=== PATIENT | male | born 1945 | race Caucasian/White ===

== ENCOUNTER → 2018-04-24 12:03 | Outpatient (CLI) | payer MEDICARE, SELFPAY ==
[2018-04-24 12:38] LABS: Cholesterol 176 mg/dL (200); High Density Lipoprotein 48 mg/dL; PSA,Total- Diagnostic 4.73 ng/mL (0.0-4.0); Triglycerides 132 mg/dL; Very Low Density Lipoprotein 26 mg/dL (5-40)
[2018-04-25 03:06] LABS: Hepatitis C Ab <0.1 s/co ratio (0.0-0.9)
== END ==
PROVIDERS: Family Provider Internal Medicine; PCP Internal Medicine; Visit Provider Internal Medicine
DX: Z00.00 Encounter for general adult medical examination without abnormal findings (principal); E78.6 Lipoprotein deficiency; R97.20 Elevated prostate specific antigen [PSA]
CPT/HCPCS: 80061; 84153; 86803; 86804

== ENCOUNTER 2020-01-30 10:03 | Day surgery (SDC) | payer MEDICARE, SELFPAY ==
[2020-01-30] VITALS (7 sets, daily range): BP systolic 157–167; BP diastolic 74–89; PULSE 57–76; RESP 16; TEMP -10–36.5; O2SAT 97–100; BMI 27.4
[2020-01-30] MEDS: Tetracaine 0.5% Ophthalmic Bottle 1 DRP OP (11:14)
[2020-01-30] MEDS: Povidone Iodine 30 ML Opthalmic Sol 1 DRP (11:17)
--- NOTE | 2020-01-30 12:14 | DCINST_ITS ---
Allergies/Adverse Reactions: Allergies No Known Allergies Allergy (Verified 01/23/20 10:05) Medications to take at Discharge NK 01/23/20 Cataract Instructions: -Take a pain reliever such as Tylenol, Aspirin or Ibuprofen if needed for eye aching or pain. If this is not enough relief for you pain, call your doctor (or the doctor library circulation department chief), even at night. -You are scheduled for a follow-up appointment at [facility] the day after surgery. You should have someone drive you. -Transient pain and irritation are due to the incision that was made at the time of surgery and do not indicate any trouble. Our office numbers are . If there is no answer, or if it is after our normal business hours, call your surgeon. My home phone number is: Dr. Ashley Escalera INSTRUCTIONS FOLLOWING TOPICAL ANESTHETIC CATARACT SURGERY Protect operated eye with glasses or metal shield at all times. Instill one drop of Polytrim (or other antibiotic drop), one drop of Prednisolone and one drop of Acular in the operated eye four times a day (breakfast, lunch, dinner, and bedtime) until the doctor tells you to quit or decrease them. Wait 3-5 minutes between each drop. Please begin these immediately upon arriving at home. if your surgery is in t he afternoon, try to use the drops at least three more times the day of surgery and again the following morning before your appointment. INSTRUCTIONS FOLLOWING RETROBULBAR CATARACT SURGERY Keep the eye patch and metal shield on until you see your surgeon the day after surgery - these will be removed in the office that day. Do not drive while the patch is on your eye. You will be instructed about the use of drops for the operated eye at that visit. Primary Care Physician: Danuta Vaz MD [Primary Care Provider] -
--- NOTE | 2020-01-30 12:15 | PCM.OPRPT ---
Report of Operation Date of Procedure: 01/30/20 Pre-Operative Diagnosis: Cataract OS Post-Operative Diagnosis: same Surgery/Procedure Performed:: PEM IOL OS Description of Surgical Findings:: cataract Type of Anesthesia:: MAC and Topical Anesth Estimated Blood Loss (mL): none Description of Procedure: Indications for procedure: 74 yo male with history or worsening vision in left eye secondary to cataract. After discussion of the risks, benefits, alternatives, or surgery patient agreed to proceed with cataract surgery. Description of procedure: The patient was brought to the operating room where a time out was performed prior to the start of the procedure. Anesthesia team induced light sedation. The eye was prepped and draped in the usual sterile fashion for eye surgery. A melonie blade was used to make a paracentesis incision at the limbus. Preservative free lidocaine followed by viscoat was instilled into the anterior chamber. A keratome was used make the incision at the temporal limbus. A cystotome was used to begin the capsulorhexis and completed in the continous curvlinear fashion using forceps. BSS on a lopez cannula was used to hydrate beneath the lens capsule until it was noted to be freely mobile in the capsular bag. Phacoemulsification was used to remove the lens in a divide and conquer technique. The cortical material was removed using irrigation and aspiration. The capsular bag was intact. Provisc was used to inflate the capsular bag and a 17.0 tecnis PCBOO was placed into the capsular bag and adjusted using the nakul hook. The remaining viscoelastic material was removed. The wounds were hydrated and noted to be watertight at the conclusion of the case. The patient was taken to the recovery room in stable condition with instructions to follow up in the clinic the following day. - Complications none - Admit VTE Documentation VTE Present on Admission: No - patient can ambulate
== END 2020-01-30 12:46 | disposition home or self-care (01) ==
LOC: SDC 10:12 → AC 10:13
PROVIDERS: PCP Internal Medicine; Referring Provider Ophthalmology; Visit Provider Ophthalmology
PROC: (CPT 66984; principal; 2020-01-30 11:20)
DX: H25.812 Combined forms of age-related cataract, left eye (principal); H01.002 Unspecified blepharitis right lower eyelid; H01.005 Unspecified blepharitis left lower eyelid; H43.811 Vitreous degeneration, right eye
CPT/HCPCS: 00142; 66984

== ENCOUNTER → 2020-03-24 12:41 | Outpatient (CLI) | payer MEDICARE, SELFPAY ==
[2020-01-30 10:27] VITALS: BMI 27.4
== END ==
PROVIDERS: PCP Internal Medicine; Referring Provider Ophthalmology; Visit Provider Ophthalmology
DX: Z01.818 Encounter for other preprocedural examination (principal)

== ENCOUNTER → 2021-05-04 | Outpatient (CLI) | payer MEDICARE, SELFPAY ==
[2020-01-30 10:27] VITALS: BMI 27.4
[2021-05-04 10:05] LABS: Cholesterol 205 mg/dL (200); High Density Lipoprotein 48 mg/dL; Triglycerides 179 mg/dL; Very Low Density Lipoprotein 36 mg/dL (5-40)
== END | disposition home or self-care (01) ==
LOC: LABSPEC 09:31
PROVIDERS: PCP Internal Medicine; Referring Provider Internal Medicine; Visit Provider Internal Medicine
DX: Z00.00 Encounter for general adult medical examination without abnormal findings (principal)
CPT/HCPCS: 80061

== ENCOUNTER → 2024-08-06 | Outpatient (CLI) | payer MEDICARE, SELFPAY ==
--- NOTE | 2024-08-06 13:27 | US_ITS ---
INDICATION: Scrotal pain EXAMINATION: Ultrasound US Scrotum (Contents) TECHNIQUE: Realtime ultrasound of the testicles was performed with grayscale, Color Doppler and spectral Doppler analysis. COMPARISON: No relevant prior comparison study available FINDINGS: RIGHT: TESTIS: 5.7 x 3.3 x 3.6 cm. Heterogeneous with probable intravenous mass measuring about 3.4 x 3.2 x 3 cm. COLOR DOPPLER: Decreased arterial and venous flow to the right testicle. EPIDIDYMIS: Not visualized. [ HYDROCELE: Large right hydrocele. VARICOCELE: None. LEFT: TESTIS: Stent left testicle.. Previous left orchiectomy. EPIDIDYMIS: Not visualized. US/Testicular with Arterial Flow IMPRESSION: 1. Heterogeneous right testicle with probable heterogeneous solid mass. Urology consultation is recommended. 2. Large right hydrocele. 3. Status post left orchiectomy. Electronically Signed: Ignacio Katz MD at 15:29 EDT ,
== END | disposition home or self-care (01) ==
LOC: US 13:22
PROVIDERS: PCP Internal Medicine; Referring Provider Urology; Visit Provider Urology
DX: N50.82 Scrotal pain (principal)
CPT/HCPCS: 76870; 93976

== ENCOUNTER 2024-08-09 13:56 | Day surgery (SDC) | payer MEDICARE, SELFPAY ==
[2024-08-09] VITALS (8 sets, daily range): BP systolic 142–167; BP diastolic 61–91; PULSE 54–77; RESP 14–18; TEMP 36.1–36.8; O2SAT 97–100; BMI 26.4
--- NOTE | 2024-08-09 | IMM_PTH ---
PATIENT: VANDANA FONSECA LOC: [place] U#:[id number] AGE/SX: 79/M ROOM: RE08/09/[address]: Dr. Fortunato Rao MD : 1945 BED: DIS: 08/09/2024 SPEC #: [id number] RECD: 08/16/24 12:50 STATUS: SOUWilbert REQ #: [id number] MINESH: 08/09/24 00:[address]: Fortunato Rao DEPT: IMMUNOHISTOCHEMISTRY RECD BY: Roger Chatman ENTERED: 08/16/24 12:51 SP TYPE: IMMUNO OTHR DR: Dr. Danuta Vaz MD Tissues: Testis, NOS Procedures: CD30 (add) CK20 (add) CK7 (add) CK8 (add) KI-67 (add) P53 (add) Vimentin (add) Pankeratin (initial) PHYSICIAN & INSTITUTION [place] [id number] SPECIMEN INFORMATION: Tissue Source: Right testicular mass Clinical Info: Right testicular mass Specimen Number: [id number] CPT code: 29019,24572n2 METHODOLOGY: Deparaffinized sections of prefer/formalin-fixed tissue or PAP/DQ stained slides are incubated with monoclonal/polyclonal antibodies/oligonucleotide probes. Localization is made via biotin free immunoperoxidase method. Appropriate controls are performed and reacted as expected. Results on target cell population are indicated in the following table: RESULTS: ANTIBODY / CLONE RESULT Block #5 AE1-3 (AE1/AE3/PCK26) negative CK7 (OV-TL12/30) negative CK8 (01aspvS63) negative CK20 (KS20.8) negative CD30 (Vic-H2) negative Vimentin (V9) negative P53 (DO-7) positive, missense type Ki-67 (30-9) positive, high These tests were developed and their performance characteristics determined by [facility]. They may not have been cleared or approved by the U.S. Food and Drug Administration. The FDA has determined that such clearance or approval is not necessary. The above immunohistochemical/dualISH markers are ordered and reviewed by the Pathologist. INTERPRETATION: Right testicular mass, orchiectomy: Consistent with seminoma. 08/19/2024
--- NOTE | 2024-08-09 14:19 | PCM.PRE.AN2 ---
ASA Classification* ASA Classification ASA Classification: 2 Assessment & Plan Anesthesia* Anesthesia Assessment Anesthesia Assessment: Discussed sedation and/or anesthesia options, risks, benefits, and alternatives with patient/parents/legal guardian/POA. Questions invited. The patient/parents/legal guardian/POA seems to understand and agrees to proceed with anesthesia plan. Reviewed the physical assessment, medical history, allergy history and patient home medications list prior to surgery/procedure/anesthetic and documented any changes. Performed airway and anesthesia risk assessments. 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 When Was Last Pacemaker Check QUESTION #4 FULL TEXT: You/Your Family Experience fever (hyperthermia) with Anesthesia Last Oral Intake Last Oral intake: Last Oral Intake NPO since Meds taken in AM with sips of water? Meds patient instructed to take am of surgery PONV PONV - bathhouse attendant: PONV - bathhouse attendant Female HX of Motion Sickness HX of N/V After Surgery Non-Smoker Duration of Surgery greater than 60 minutes Number of Risk Factors PONV Score Respiratory Assessment Respiratory Assessment - bathhouse attendant: Respiratory Tract Infection Hx - bathhouse attendant Hx Respiratory Tract Infection No 01/23/20 10:17 STOP Sleep Apnea STOP Sleep Apnea - bathhouse attendant: STOP Sleep Apnea - bathhouse attendant Hx Hypertension No 01/23/20 10:17 Hx Sleep Apnea No 01/30/20 12:14 CPAP BIPAP Do you snore loudly (louder than talking or can be heard Do you often feel tired/ fatigued/ sleepy during daytime? Has anyone observed you stop breathing during sleep? STOP Results QUESTION #5 FULL TEXT : Do you snore loudly (louder than talking or can be heard through closed doors)? 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 Specify any problems Hx of Preganancy in last 3 Months Nurse Filling Out Transfusion & Questions: Date: Time: Patient unable to answer at this time (ie. confused, unrespo /Reproduction History /Reproductive History - bathhouse attendant: /Reproductive Hx- bathhouse attendant Hx Now Gestational Age (in weeks): EDC: Hx Hx Para Hx Section SAB Active Medications Active Medications: Current Medications Generic Name Dose Route Start Last Admin Trade Name Freq PRN Reason Stop Dose Admin Lactated Ringer's 1,000 mls @ 15 mls/hr 08/09/24 14:15 IV .Q48H SAUL PFSH Home Medications ?Medication ?Instructions ?Recorded ?Last Taken ?Type acetaminophen 500 mg capsule 500 mg PO Q4H PRN pain 08/09/24 08/08/24 History glucosamine sulfate 500 mg tablet 500 mg PO BID 08/09/24 08/08/24 History (Glucosamine) turmeric 400 mg capsule 400 mg PO BID 08/09/24 08/08/24 History Allergy/AdvReac Type Severity Reaction Status Date / Time No Known Allergies Allergy Verified 08/09/24 14:16 Social History Smoking Status: Never smoker Review of Systems (Anesthesia) ROS Narrative System reviewed and no additional complaints, except as documented.
[2024-08-09] MEDS: Lactated Ringers 1,000 ML 15 ML IV (14:29)
[2024-08-09 15:17] LABS: LDH 274 U/L (87-241)
[2024-08-09] MEDS: Bupivacaine Mpf 0.5% 30 ML VIAL (16:03)
--- NOTE | 2024-08-09 16:04 | DCINST_ITS ---
Discharge Instructions Diet Discharge Diet: No restrictions Activity Discharge Activity: May Not Drive Return to work on:: 08/13/24 May shower in (days): 1 Dressing / Incision Call your doctor if you observe: Fever of 101 or Higher Cleanse incision/area with: Keep Dressing Clean & Dry Follow Up Care Please Follow Up With: Fortunato Rao MD When: call office for follow up appt. Test Results: Test results from this visit will be discussed in further detail at your follow- up appointment, if applicable. Discharge Plan Admission Primary Reason for Your Visit: Right radical orchiectomy Attending Provider: Fortunato Rao Primary Care Provider: Danuta Vaz Instructions Patient Instructions: Radical Orchiectomy Print Language: Mexican Discharge Orders/Prescriptions Prescriptions: New oxycodone 5 mg tablet 5 mg PO Q6H PRN (Reason: pain) 3 Days Qty: 14 0RF Continued acetaminophen 500 mg capsule 500 mg PO Q4H PRN (Reason: pain) turmeric 400 mg capsule 400 mg PO BID glucosamine sulfate [Glucosamine] 500 mg tablet 500 mg PO BID Rx Instructions: administer with meals Referrals / Follow Up: Fortunato Rao MD [Med Staff - Active Staff] - Danuta Vaz MD [Primary Care Provider] - Disposition Disposition (needs filled in before D/C Order can be placed): Home, Self Care
--- NOTE | 2024-08-09 16:04 | HP.PCM_ITS ---
HPI - General General Date of Service: 08/09/24 Chief Complaint: Solid mass in right testicle HPI Narrative VANDANA FONSECA, is a 79 M who presents for a right radical orchiectomy was on have a solid mass in the right testicle and he also has a right hydrocele randee ve the right testicle and do a radical orchiectomy on the right [facility] Medical History (Updated 08/09/24 @ 16:[address] Fortunato Rao MD) Cataract Arthritis Wears glasses Home Medications ?Medication ?Instructions ?Recorded ?Last Taken ?Type acetaminophen 500 mg capsule 500 mg PO Q4H PRN pain 08/09/24 08/08/24 History glucosamine sulfate 500 mg tablet 500 mg PO BID 08/09/24 08/08/24 History (Glucosamine) oxycodone 5 mg tablet 5 mg PO Q6H PRN pain 3 days #14 08/09/24 Unknown Rx tabs turmeric 400 mg capsule 400 mg PO BID 08/09/24 08/08/24 History Allergy/AdvReac Type Severity Reaction Status Date / Time No Known Allergies Allergy Verified 08/09/24 14:16 Surgical History (Updated 08/09/24 @ 14:38 by Shon Gomes) History of orchiectomy Social History Smoking Status: Never smoker Vital Signs Vital Signs Vital Signs: 08/09/24 14:19 08/09/24 14:19 Temperature 98.3 F Temperature Source Temporal Pulse Rate 77 Respiratory Rate 16 Respiratory Pattern Normal Blood Pressure 167/81 H Blood Pressure Mean 109 Blood Pressure Source Monitor Blood Pressure Position Semi-Fowlers Blood Pressure Location Left Arm Pulse Ox 100 Oxygen Delivery Method Room Air Weight Weight: 83.5 kg Body Mass Index (BMI) 26.4 Results Lab / Micro Data Labs: Laboratory Results - last 24 hr 08/09/24 14:30: Lactate Dehydrogenase 274 H
--- NOTE | 2024-08-09 16:07 | PCM.OPRPT ---
Report of Operation Date of Procedure: 08/09/24 Pre-Operative Diagnosis: Right testicle mass Post-Operative Diagnosis: same Surgery/Procedure Performed:: Right radical orchiectomy Description of Surgical Findings:: Patient was seen in the preoperative area, he has an abnormal mass on the Right testicle which on exam is abnormal and also has a ultrasound is abnormal on the right side. Pt. also has a history of prior left orchiectomy 20 years ago as well. Because of this we discussed the potential risk for malignancy and working to proceed with a radical orchiectomy on the right side. He understands is possible that the testicle even the looks abnormal and feels abnormal may not be cancerous it could be scar tissue it could be inflammation or infection. He understands no guarantee that it is cancer. Also there is no guarantees that if we remove the testicle and he has cancer is cured and the patient may require more treatments such as chemotherapy and radiation if he does have testicle cancer. Preoperative tumor markers were drawn. We discussed the risk of the procedure including risk of getting a hernia at the site of surgery, infection or bleeding. We also discussed the possibility of low testosterone level and infertility with one testicle. Patient was taken back to the operating room at the smooth induction of anesthesia. The penis and genitals were prepped and draped in usual sterile fashion, the abdomen was shaved as well as the testicles were shaved. The side of the orchiectomy which is the right side was marked. A timeout was performed. I then made a inguinal incision on the right side, dissected through the skin superficial fat Angela's fascia with it was then incised there was a small blood vessel across Angela's fascia that was cauterized and suture-ligated. The I then came across the top of the inguinal canal and opened up the inguinal canal with a joker. We then encircled the blood vessels and performed high ligation of the testicle I then dissected out the testicle on the right side and the hydrocele was drain in order to allow the testicle to be delivered it from the testicle through the inguinal incision. We then dissected using electrocautery to free the testicle from the scrotum and transected through the gubernaculum. And the testicle was placed into a container and sent to pathology. We then made sure that the vessels were clear and there were not bleeding we irrigated the wound we closed the anterior layer of the inguinal canal with interrupted stitches and then we closed the Angela's fascia and then closed the skin with subcuticular stitches. All needles stitches were accounted for. There was a complete count at the end of the case after closure. Patient was taken back to the PACU in stable condition. Surgeon: Fortunato Rao Type of Anesthesia: General Drains: none Estimated Blood Loss (mL): 5 Admit VTE Documentation VTE Present on Admission: No VTE Mechan Device Prophylaxis: SCD's VTE Pharm Prophylaxis ordered?: No
[2024-08-09] MEDS: Cefazolin 2 GM in 0.9% Normal Saline (100mL Bag) 100 ML IV (16:13)
--- NOTE | 2024-08-09 16:25 | TEST_PTH ---
PATIENT: VANDANA FONSECA [place] [facility] [place][id number] AGE/SX: 79/M ROOM: RE08/09/[address]: Dr. Fortunato Rao MD : 1945 BED: DIS: 08/09/2024 SPEC #: [id number] RECD: 08/12/24 07:13 STATUS: JULIO GUDINO #: [id number] MINESH: 08/09/24 16:[address]: Fortunato Rao DEPT: SURGICAL PATHOLOGY RECD BY: Fany Caal ENTERED: 08/12/24 10:28 SP TYPE: TESTICLE OTHR DR: Dr. Danuta Vza MD Tissues: Testis, NOS Procedures: Surgery Specimen Level HEADER OPERATION: Right orchiectomy, radical PRE-OP DIAGNOSIS: Right testicular mass TISSUE SUBMITTED: Right testicular and mass MICROSCOPIC DIAGNOSIS Right orchiectomy: Classic seminoma. See synoptic report below. AM/mr 08/14/2024 COMMENT TESTIS - RADICAL ORCHIECTOMY CANCER SUMMARY: Specimen type - radical orchiectomy Specimen laterality - Right testicle Tumor focality - Single focus of tumor Tumor Size - 4.5 x 3.5 x 3.5cm in greatest dimension Additional tumor nodules - Not applicable Histologic type - Seminoma Tumor extension - Tumor confined to testis Margins: Spermatic cord margin - Free of tumor Other margins - Free of tumor Microscopic tumor extension - confined to testis. Lymph vascular invasion - Not identified Regional lymph nodes: Not present in specimen Distant metastasis - unknown Serum tumor markers: BDC=211 ?HCG=31 Additional pathologic findings - Extensive tumor necrosis and chronic inflammation PATHOLOGIC STAGE: T2 Nx Mx The above summary is in compliance with [employer] [place] (CAP) Cancer Protocols Checklist and [place] [employer] Committee on Cancer (AJCC), Staging Manual, 8th Ed. Immunohistochemistry results will be reported as an addendum. Immunohistochemistry ([id number]) supports the above diagnosis. Case has been reviewed in consultation with Dr. Fuller who concurs with the above diagnosis. IDC:SJ MICROSCOPIC DESCRIPTION Slides are reviewed. GROSS DESCRIPTION Received in fixative is one container labeled with the patient's name and designated Right testicular mass. The specimen consists of a radical orchiectomy specimen consisting of attached spermatic cord weighing 119gm. Testes measures 7.0 x 7.0 x 5.0cm and spermatic cord measures 3.5cm in length and up to 1.5cm in diameter. External surface is inked black. Sections of testes reveal an illdefined vogt and one stone measuring 0.6 x 0.1 x 0.1cm in greatest dimension and focally hemorrhagic mass occupying 90% of the testicle and measures 4.5 x 3.5 x 3.5cm. Vogt-yellow fluid is noted between tanica vaginalis and tanica albuginea. The tumor mass appears to be confined to testes involvement of the epididymis of spermatic cord is not seen. Sections will be submitted after fixation. . 08/12/2024 Sections of the tumor also reveal focal area of hemorrhage and necrosis. String Laster sections are submitted in ten cassettes as follows: 1- spermatic cord resection margin, 2- more section of spermatic cord, 3- epididymis and vaginalis, 4-10- tumor (cassette 8-10 also contain the adjacent uninvolved testicular parenchyma). . 08/13/2024 TC:0 CPT:[id number] ADDENDUM ADDENDUM ADDENDUM ADDENDUM ADDENDUM ADDENDUM ADDENDUM ADDENDUM ADDENDUM ADDENDUM ADDENDUM ADDENDUM ADDENDUM ADDENDUM ADDENDUM 10/14/2024 08:19 ADDENDUM 10/14/2024 08:19 ADDENDUM 10/14/2024 08:19 ADDENDUM 10/14/2024 08:19 ADDENDUM 10/14/2024 08:19 This addendum is added to incorporate an outside pathology consultation report. The case was examined at [facility] (#[id number]) and the following diagnosis was rendered. 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 Tumor invades the hilar adipose tissue. Negative for lymphovascular invasion. Margins are negative for tumor. Please see complete above mentioned consultation report in EMR
--- NOTE | 2024-08-09 17:10 | PCM.POST.ANE ---
Anesthesia: Postop Eval I Current Vital Signs Temperature: 97.0 F Pulse Rate: 56 Blood Pressure: 148/67 Respiratory Rate: 14 Pulse Ox: 98 Oxygen Delivery Method: Room Air Assessment Airway patent: Yes Spontaneous unlabored respirations: Yes Mental status: Awake and Calm nausea: No Vomiting: No Anesthesia Complication: No Fluid Hydration Crystalloid volume administer (ml): 800 Total IV fluid infused: 800 Progress Note Anesthesia document: Postop Eval 1 completed: Yes
--- NOTE | 2024-08-09 17:39 | POSTOPAN2_ITS ---
Anesthesia Postop Eval I Sum Postop Eval Completion status Anesthesia document: Postop Eval 1 completed: Yes Anesthesia Postop Eval I Summary Anesthesia Postop Eval I Summary: Anesthesia Postop Eval I: Assessment Summary Airway patent Yes 08/09/24 17:12 RN CHRONIC.CATHERINELOU Spontaneous unlabored Yes 08/09/24 17:12 RN CHRONIC.TIA respirations Mental status Awake,Calm 08/09/24 17:12 RN CHRONIC.CATHERINELOU nausea No 08/09/24 17:12 RN CHRONIC.CATHERINELOU Vomiting No 08/09/24 17:12 RN CHRONIC.CATHERINELOU Anesthesia Postop Eval I: Fluid Summary Crystalloid volume administer 800 08/09/24 17:12 RN CHRONIC.CATHERINELOU (ml) Colloids volume administered ( ml) Blood Product volume administered (ml) Total IV fluid infused 800 08/09/24 17:12 RN CHRONIC.RUSSELLU Anesthesia Postop Eval I: Summary Notes Anesthesia Complication No 08/09/24 17:12 RN CHRONIC.TIA Anesthesia Complication Comment: Post-operative progress note Anesthesia: Postop Eval II Evaluation Mental status: Awake Pain Level: 0 nausea: No Vomiting: No
--- NOTE | 2024-08-09 17:39 | PCM.POSTANE2 ---
Anesthesia Postop Eval I Sum Postop Eval Completion status Anesthesia document: Postop Eval 1 completed: Yes Anesthesia Postop Eval I Summary Anesthesia Postop Eval I Summary: Anesthesia Postop Eval I: Assessment Summary Airway patent Yes 08/09/24 17:12 FIRE DEPARTMENT MARINE ENGINEER.CATHERINELOU Spontaneous unlabored Yes 08/09/24 17:12 FIRE DEPARTMENT MARINE ENGINEER.TIA respirations Mental status Awake,Calm 08/09/24 17:12 FIRE DEPARTMENT MARINE ENGINEER.CATHERINELOU nausea No 08/09/24 17:12 FIRE DEPARTMENT MARINE ENGINEER.CATHERINELOU Vomiting No 08/09/24 17:12 FIRE DEPARTMENT MARINE ENGINEER.CATHERINELOU Anesthesia Postop Eval I: Fluid Summary Crystalloid volume administer 800 08/09/24 17:12 FIRE DEPARTMENT MARINE ENGINEER.CATHERINELOU (ml) Colloids volume administered ( ml) Blood Product volume administered (ml) Total IV fluid infused 800 08/09/24 17:12 FIRE DEPARTMENT MARINE ENGINEER.RUSSELLU Anesthesia Postop Eval I: Summary Notes Anesthesia Complication No 08/09/24 17:12 FIRE DEPARTMENT MARINE ENGINEER.TIA Anesthesia Complication Comment: Post-operative progress note Anesthesia: Postop Eval II Evaluation Mental status: Awake Pain Level: 0 nausea: No Vomiting: No
[2024-08-11 08:08] LABS: HCG BETA-SUBUNIT QUANT. 31 mIU/mL (0-3)
[2024-08-11 09:07] LABS: AFP, Tumor Marker 3.3 ng/mL (0.0-8.4)
== END 2024-08-09 18:19 | disposition home or self-care (01) ==
LOC: SDC 13:58 → AC 14:00
PROVIDERS: PCP Internal Medicine; Referring Provider Urology; Visit Provider Urology
PROC: (CPT 54530; principal; 2024-08-09 16:10)
DX: C62.91 Malignant neoplasm of right testis, unspecified whether descended or undescended (principal)
CPT/HCPCS: 54530; 82105; 83615; 84702; 88309; 88341; 88342; J7120; J2405

== ENCOUNTER → 2024-09-03 | Outpatient (CLI) | payer MEDICARE, SELFPAY ==
[2024-09-03 13:25] LABS: LDH 213 U/L (87-241)
[2024-09-04 04:07] LABS: AFP, Tumor Marker 3.2 ng/mL (0.0-8.4); HCG BETA-SUBUNIT QUANT. 31 mIU/mL (0-3)
== END | disposition home or self-care (01) ==
PROVIDERS: PCP Internal Medicine; Referring Provider Urology; Visit Provider Urology
DX: C62.10 Malignant neoplasm of unspecified descended testis (principal)
CPT/HCPCS: 36415; 82105; 83615; 84702

== ENCOUNTER → 2024-09-04 | Outpatient (CLI) | payer MEDICARE, SELFPAY ==
--- NOTE | 2024-09-04 13:21 | CT_ITS ---
STUDY: CT ABDOMEN AND PELVIS WITH CONTRAST REASON FOR EXAM: Male, 79 years old. Recent diagnosis of testicular cancer. RADIATION DOSAGE (If Supplied By Facility): CTDIvol = ( 18.87 ) mGy, DLP = ( 1169.38 ) mGycm TECHNIQUE: Transaxial images were obtained from the dome of the diaphragm to the symphysis pubis with oral contrast. Oral and amp;amp; IV Readi-CAT and amp;amp; 100mL Isovue-370 was administered. Sagittal and coronal images were reconstructed. Individualized dose optimization techniques were used for this CT. COMPARISON: None. FINDINGS: The visualized lung bases are unremarkable. Coronary artery calcification. Normal liver. The gallbladder is contracted. There is a benign calcified granuloma of the spleen. Normal pancreas. There is a 2.4 cm x 1.2 cm hypodense mass in the crux of the left adrenal gland. This most likely represents a small adrenal adenoma. Bilateral parapelvic renal cysts. Normal visualized stomach. Normal small intestine. There are multiple colonic diverticula consistent with diverticulosis. The appendix is visualized and appears normal. There is diffuse atherosclerotic calcification of the abdominal aorta, without a demonstrated aneurysm. Normal inferior vena cava. There is a small retroperitoneal lymphadenopathy with enlarged nodes no greater than 10mm in the short axis diameter. Normal urinary bladder. There is enlargement of the prostate gland. The prostate measures 4.8 cm x 5.1 cm. This causes indentation at the bladder base. Small bilateral inguinal hernias containing fat. Postoperative changes in the right inguinal canal. There are diffuse degenerative changes of the visualized lumbar spine. CT/Abdomen/Pelvis W IV Cont ONLY IMPRESSION: Fatty infiltration of the liver. Bilateral parapelvic renal cysts. 2.4 cm x 1.2 cm hypodense nodule in the crux of the left adrenal gland suggestive of a small adrenal adenoma. Prostatic enlargement with indentation of the bladder base. Electronically Signed: Jae Arce MD at 14:37 EDT ,
[2024-09-04 13:47] LABS: CREATININE FINGERSTICK < 1.0 mg/dL (0.70-1.30); EGFR FINGERSTICK > 60.0000 mL/min (>60)
== END | disposition home or self-care (01) ==
PROVIDERS: PCP Internal Medicine; Referring Provider Urology; Visit Provider Urology
DX: C62.10 Malignant neoplasm of unspecified descended testis (principal)
CPT/HCPCS: 74177; Q9967